=== PATIENT | male | born 1960 | race Caucasian/White ===

== ENCOUNTER 2019-07-23 21:53 | Emergency (ER) | payer BC ==
[~2019-07-23] VITALS: Ht 172.7 cm; Wt 78.0 kg
[2019-07-23] MEDS ORDERED: NOHOMEMEDICATIONS (22:05)
[2019-07-23] MEDS ORDERED: NORCO 5-325 TA1 EAC1 PO (23:02)
[2019-07-23] MEDS ORDERED: BACITRACIN28.4 G1 TOP (23:02)
[2019-07-23] MEDS ORDERED: KEFLEX500 M1 PO (23:02)
[2019-07-23 23:15] VITALS: BP 143/82
== END 2019-07-23 23:16 | disposition home or self-care (01) ==
LOC: ER 21:53
DX: S61.511A Laceration without foreign body of right wrist, initial encounter (principal); F17.200 Nicotine dependence, unspecified, uncomplicated; W25.XXXA Contact with sharp glass, initial encounter; Y92.89 Other specified places as the place of occurrence of the external cause; Y93.89 Activity, other specified; Y99.8 Other external cause status